=== PATIENT | female | born 1990 | race Caucasian/White ===

== ENCOUNTER 2021-02-20 05:55 | Day surgery (SDC) | payer BC ==
[2021-02-19 09:53] LABS: BASOPHILS % (AUTO) 0 % (0-1); EOSINOPHILS % (AUTO) 5 % (1-7); LYMPHOCYTES % (AUTO) 35 % (22-44); MEAN CORPUSCULAR HEMOGLOBIN 30.6 pg (27.0-34.8); MEAN CORPUSCULAR HGB CONC 33.7 g/dL (32.4-35.8); MONOCYTES % (AUTO) 7 % (2-9); NEUTROPHILS % (AUTO) 53 % (42-75); PLATELET COUNT 197 x10^3/uL (130-400); RED BLOOD COUNT 4.76 x10^6/uL (3.82-5.3); RED CELL DISTRIBUTION WIDTH 13.5 % (9.6-15.2)
[2021-02-19 09:57] LABS: MICROSCOPIC AUTO
[2021-02-19 10:05] LABS: CHLORIDE 108 mmol/L (98-107)
[2021-02-19 10:17] LABS: ALANINE AMINOTRANSFERASE 30 U/L (12-78); ALBUMIN 3.6 g/dL (3.4-5.0); ALKALINE PHOSPHATASE 68 U/L (45-117); ANION GAP 6 mmol/L (5-15); BILIRUBIN,TOTAL 0.3 mg/dL (0.2-1.0); CALCIUM 8.5 mg/dL (8.5-10.1); TOTAL PROTEIN 7.5 g/dL (6.4-8.2)
[~2021-02-20] VITALS: Ht 170.2 cm; Wt 89.6 kg
[~2021-02-20 05:55] MED LIST: ESOM40CA PO; FLUO10CA13 PO; FLUO60TA PO; LEVO100T PO
[2021-02-20] MEDS ORDERED: CHLORHEXIDINE 15 ML UDC ONE (06:09)
[2021-02-20] MEDS ORDERED: LACTATED RINGERS 1,000 ML IV SCH (06:30)
[2021-02-20] MEDS ORDERED: CHLORHEXIDINE 15 ML UDC PO ONE (06:30)
[2021-02-20 06:53] VITALS: BP 100/73
[2021-02-20] MEDS ORDERED: BUPIVACAINE/PF 0.25% ONE (07:04)
[2021-02-20] MEDS ORDERED: MANNITOL PMX 20% 500 ML ONE (07:05)
[2021-02-20] MEDS ORDERED: EPINEPHRINE 1 MG/ML, 1ML ONE (07:06)
[2021-02-20] MEDS ORDERED: PROPOFOL 10 MG/ML, 20ML ONE (07:23)
[2021-02-20] MEDS ORDERED: ROCURONIUM 10MG/ML,5ML ONE ×2 (07:23→08:49)
[2021-02-20] MEDS ORDERED: LIDOCAINE-MPF 2% ,5ML ONE (07:23)
[2021-02-20] MEDS ORDERED: PROMETHAZINE 25 MG/ML, 1ML IVPush PRN (07:30)
[2021-02-20] MEDS ORDERED: GLYCOPYRROLATE 0.2MG/1ML, 5ML ONE (08:20)
[2021-02-20] MEDS ORDERED: CEFOTETAN 2 GM ONE (08:20)
[2021-02-20] MEDS ORDERED: FENTANYL PF 100 MCG/2ML ONE ×3 (08:27→10:49)
[2021-02-20] MEDS ORDERED: ONDANSETRON 2MG/ML, 2ML ONE (09:38)
[2021-02-20] MEDS ORDERED: KETOROLAC 30 MG/1 ML ONE (09:48)
[2021-02-20] MEDS ORDERED: NEOSTIGMINE 1 MG/ML, 10ML ONE (09:49)
[2021-02-20] MEDS ORDERED: MEPERIDINE/PF 25MG/ML,1ML ONE (10:06)
[2021-02-20] MEDS ORDERED: OXYcodone 5 MG/5 ML ORAL.SOL UDC ONE (10:10)
[2021-02-20] MEDS: FENTANYL PF 100 MCG/2ML IV PRN ×4 (10:13→10:57)
[2021-02-20] MEDS ORDERED: morphine SULFATE 10 MG/ML, 1ML ONE (10:29)
[2021-02-20] MEDS ORDERED: OXYcodone 5 MG/5 ML ORAL.SOL UDC PO PRN (10:30)
[2021-02-20] MEDS ORDERED: MEPERIDINE/PF 25MG/0.5ML IVPush PRN (10:30)
[2021-02-20] MEDS: morphine SULFATE 10 MG/ML, 1ML IVPush PRN ×2 (10:31→10:42)
[2021-02-20] MEDS ORDERED: ACETAMINOPHEN 650 MG/20.3 ML UDC ONE (10:55)
[2021-02-20] MEDS: ACETAMINOPHEN 325 MG TABLET PO PRN ×2 (10:57→11:34)
== END 2021-02-20 13:58 | disposition home or self-care (01) ==
LOC: OUT 05:55
PROVIDERS: ATTEND Obstetrics & Gynecology Gynecology
DX: N80.0 Endometriosis of uterus (principal); N94.6 Dysmenorrhea, unspecified; N94.10 Unspecified dyspareunia; N83.01 Follicular cyst of right ovary; N73.6 Female pelvic peritoneal adhesions (postinfective); E03.9 Hypothyroidism, unspecified; G43.909 Migraine, unspecified, not intractable, without status migrainosus; Z79.890 Hormone replacement therapy; Z79.899 Other long term (current) drug therapy; Z88.0 Allergy status to penicillin; Z88.2 Allergy status to sulfonamides; Z88.5 Allergy status to narcotic agent; Z90.49 Acquired absence of other specified parts of digestive tract; Z90.79 Acquired absence of other genital organ(s); Z98.890 Other specified postprocedural states; Z82.49 Family history of ischemic heart disease and other diseases of the circulatory system
CPT/HCPCS: 36415; 58571; 80053; 81001; 84702; 85025; 86850; 86900; 88307; J0171; J1885; J2175; J2270; J2405; J2704; J2710; J3010; J7120; S2900

== ENCOUNTER 2021-02-26 19:56 | Emergency (ER) | payer BC ==
[~2021-02-26] VITALS: Ht 167.6 cm; Wt 88.4 kg
--- NOTE | 2021-02-26 20:01 | NUR ---
NIL X 1 WHEN CALLED FOR TRIAGE.
[2021-02-26 20:15] VITALS: BP 116/75
[2021-02-26] MEDS ORDERED: SODIUM CHLORIDE 0.9% 1,000ML IVBOLUS ONE (20:30)
[2021-02-26] MEDS ORDERED: ACETAMINOPHEN 500 MG TABLET PO ONE (20:30)
[2021-02-26 20:53] LABS: BASOPHILS % (AUTO) 0 % (0-1); EOSINOPHILS % (AUTO) 2 % (1-7); LYMPHOCYTES % (AUTO) 11 % (22-44); MEAN CORPUSCULAR HEMOGLOBIN 30.5 pg (27.0-34.8); MEAN CORPUSCULAR HGB CONC 34.1 g/dL (32.4-35.8); MEAN PLATELET VOLUME 8.3 fL (7.4-10.4); MONOCYTES % (AUTO) 8 % (2-9); NEUTROPHILS % (AUTO) 79 % (42-75); PLATELET COUNT 260 x10^3/uL (130-400); RED BLOOD COUNT 4.69 x10^6/uL (3.82-5.3); RED CELL DISTRIBUTION WIDTH 13.4 % (9.6-15.2)
[2021-02-26 21:07] LABS: ALANINE AMINOTRANSFERASE 26 U/L (12-78); ALBUMIN 3.6 g/dL (3.4-5.0); ANION GAP 8 mmol/L (5-15); CHLORIDE 103 mmol/L (98-107); CREATININE 0.83 mg/dL (0.55-1.02)
[2021-02-26] MEDS ORDERED: ACETAMINOPHEN 500 MG TABLET ONE (21:07)
[2021-02-26 21:09] LABS: ALKALINE PHOSPHATASE 79 U/L (45-117); BILIRUBIN,TOTAL 0.5 mg/dL (0.2-1.0); TOTAL PROTEIN 8.1 g/dL (6.4-8.2)
--- NOTE | 2021-02-26 21:12 | NUR ---
AMBULATORY TO BATHROOM W/ STEADY GAIT TO PROVIDE URINE SAMPLE.
--- NOTE | 2021-02-26 21:18 | NUR ---
UA SENT TO LAB AT THIS TIME
[2021-02-26] MEDS ORDERED: OMNIPAQUE 350 MG/ML, 100ML BOTTLE ONE (21:41)
[2021-02-26 22:35] LABS: MICROSCOPIC NOT IND
--- NOTE | 2021-02-26 23:23 | NUR ---
Patient/Caregiver given discharge instructions and they have confirmed that they understand the instructions. Patient ambulatory with steady gait. NAD, all questions answered appropriately, denies additional needs at this time. No personal belongings left in room after discharge.
--- NOTE | 2021-02-26 23:23 | NUR ---
COVID SWAB WALKEDTO LAB PRIOR TO DISCHARGE
== END 2021-02-26 23:24 | disposition home or self-care (01) ==
LOC: ED 21:58
DX: R10.30 Lower abdominal pain, unspecified (principal); Z20.822 Contact with and (suspected) exposure to COVID-19; R50.9 Fever, unspecified; Z90.710 Acquired absence of both cervix and uterus; Z90.722 Acquired absence of ovaries, bilateral
CPT/HCPCS: 36415; 74177; 80053; 81003; 83605; 84145; 85025; 87040; 96360; 99285; J7030; Q9967; U0003; U0005

== ENCOUNTER 2021-02-27 11:03 | Inpatient (IN) | payer BC ==
[~2021-02-27] VITALS: Ht 152.4 cm; Wt 93.9 kg
--- NOTE | 2021-02-27 11:46 | NUR ---
URINE AND STOOL SPECIMEN COLLECTED/WALKED TO LAB.
[2021-02-27 11:51] LABS: MEAN CORPUSCULAR HEMOGLOBIN 30.8 pg (27.0-34.8); MEAN CORPUSCULAR HGB CONC 34.1 g/dL (32.4-35.8); MEAN PLATELET VOLUME 8.5 fL (7.4-10.4); PLATELET COUNT 236 x10^3/uL (130-400); RED BLOOD COUNT 4.65 x10^6/uL (3.82-5.3); RED CELL DISTRIBUTION WIDTH 13.4 % (9.6-15.2)
[2021-02-27 12:03] LABS: ALBUMIN 3.8 g/dL (3.4-5.0); CALCIUM 9.5 mg/dL (8.5-10.1); CHLORIDE 106 mmol/L (98-107)
[2021-02-27 12:08] LABS: ALANINE AMINOTRANSFERASE 24 U/L (12-78); ALKALINE PHOSPHATASE 84 U/L (45-117); ANION GAP 10 mmol/L (5-15); BILIRUBIN,TOTAL 0.6 mg/dL (0.2-1.0); CREATININE 0.93 mg/dL (0.55-1.02); TOTAL PROTEIN 8.5 g/dL (6.4-8.2)
[2021-02-27 12:12] LABS: MICROSCOPIC NOT IND
--- NOTE | 2021-02-27 12:58 | NUR ---
MATERIAL CONTROL CLERK: PT TO ROOM FROM LOBBY
[2021-02-27 13:03] LABS: <PLATELET ESTIMATE> ADEQUATE; <PLT MORPHOLOGY> NORMAL PLT MORPH; <RBC MORPHOLOGY> NORMAL; BAND#(MANUAL) 4.27 x10^3/uL; BANDS%(MANUAL) 18 % (0-7); EOS#(MANUAL) 0.24 x10^3/uL (0.0-0.4); EOS% (MANUAL) 1 % (1-7); LYMPH#(MANUAL) 0.95 x10^3/uL (1-3.4); LYMPHS% (MANUAL) 4 % (22-44); MONOS% (MANUAL) 8 % (2-9); SEG#(MANUAL) 16.35 x10^3/uL (1.8-6.8); SEGS% (MANUAL) 69 % (42-75)
[2021-02-27] MEDS ORDERED: ONDANSETRON 2MG/ML, 2ML IVPush ONE (13:30)
[2021-02-27] MEDS ORDERED: SODIUM CHLORIDE 0.9% 1,000ML IVBOLUS ONE (13:30)
[2021-02-27] MEDS ORDERED: PIPERACILLIN/TAZO 3.375 GM in DEXTROSE 5% 50 ML IVPB ONE (13:30)
[2021-02-27] MEDS ORDERED: SODIUM CHLORIDE FLUSH 10ML SYR IVF ONE (13:30)
[2021-02-27] MEDS ORDERED: HYDROmorphone 2 MG/ML, 1ML IV ONE (13:30)
--- NOTE | 2021-02-27 13:50 | NUR ---
PT LAST ORAL INTAKE WAS HALF BANANA AT 0530.
--- NOTE | 2021-02-27 13:53 | NUR ---
PT STATES PENICIILIN ALLERGY WAS TOLD TO HER BY HER MOTHER A KID. PT HAS HAD PENICILLAN IN THE LAST 2 YEARS. NO REACTION TO TAKING IT.
[2021-02-27] MEDS ORDERED: ONDANSETRON 2MG/ML, 2ML ONE (14:00)
[2021-02-27] MEDS ORDERED: HYDROmorphone 2 MG/ML, 1ML ONE (14:00)
[2021-02-27 14:26] LABS: CLOSTRIDIUM DIFFICILE ANTIGEN NEGATIVE; CLOSTRIDIUM DIFFICILE TOXIN NEGATIVE (Negative)
[2021-02-27] MEDS ORDERED: OXYcodone 5 MG/5 ML ORAL.SOL UDC PO PRN (16:30)
[2021-02-27] MEDS ORDERED: SODIUM CHLORIDE 0.9% 1,000ML IV ONE (16:30)
[2021-02-27] MEDS ORDERED: PHARMACY MAY ADJ FOR RENAL FX MC SCH (16:30)
[2021-02-27] MEDS: SODIUM CHLORIDE 0.45% 1,000 ML IV SCH ×2 (16:30→21:51)
[2021-02-27] MEDS: SODIUM CHLORIDE 0.9% 1,000 ML IV SCH ×2 (16:30→20:30)
[2021-02-27 19:19] VITALS: BP 103/59
[2021-02-27] MEDS: HYDROmorphone 2 MG/ML, 1ML IV PRN ×2 (19:23→22:49)
[2021-02-27 19:29] VITALS: BP 92/58
[2021-02-27] MEDS: KETOROLAC 30 MG/1 ML IVPush PRN (20:03)
[2021-02-27] MEDS ORDERED: ACETAMINOPHEN 500 MG TABLET PO PRN (20:30)
[2021-02-27] MEDS: FLUOXETINE HCL 20 MG CAPSULE PO SCH (21:47)
[2021-02-27] MEDS: PIPERACILLIN/TAZO 4.5 GM in DEXTROSE 5% 100 ML IVPB SCH (21:48)
[2021-02-27] MEDS: ONDANSETRON 2MG/ML, 2ML IV PRN (22:00)
[2021-02-28] MEDS: SODIUM CHLORIDE 0.9% 1,000 ML IV SCH ×6 (00:30→20:16)
[2021-02-28 01:35] VITALS: BP 94/62
[2021-02-28] MEDS: KETOROLAC 30 MG/1 ML IVPush PRN ×3 (02:11→16:51)
[2021-02-28] MEDS: SODIUM CHLORIDE 0.45% 1,000 ML IV SCH ×3 (02:12→23:30)
[2021-02-28] MEDS: PIPERACILLIN/TAZO 4.5 GM in DEXTROSE 5% 100 ML IVPB SCH ×4 (04:17→21:16)
[2021-02-28] MEDS: LEVOTHYROXINE 100 MCG TABLET PO SCH (06:40)
[2021-02-28 08:45] VITALS: BP 98/66
[2021-02-28] MEDS: SENNA/DOCUSATE TABLET PO SCH (09:00)
[2021-02-28] MEDS: ONDANSETRON 2MG/ML, 2ML IV PRN ×2 (09:29→16:51)
[2021-02-28 11:48] LABS: BASOPHILS % (AUTO) 0 % (0-1); EOSINOPHILS % (AUTO) 4 % (1-7); LYMPHOCYTES % (AUTO) 15 % (22-44); MEAN CORPUSCULAR HEMOGLOBIN 30.8 pg (27.0-34.8); MEAN CORPUSCULAR HGB CONC 34.2 g/dL (32.4-35.8); MEAN PLATELET VOLUME 8.1 fL (7.4-10.4); MONOCYTES % (AUTO) 11 % (2-9); NEUTROPHILS % (AUTO) 70 % (42-75); PLATELET COUNT 152 x10^3/uL (130-400); RED BLOOD COUNT 3.99 x10^6/uL (3.82-5.3); RED CELL DISTRIBUTION WIDTH 13.3 % (9.6-15.2)
[2021-02-28 11:52] VITALS: BP 99/64
[2021-02-28 14:00] VITALS: BP_SYST 83; BP_SYST 99; BP_DIAS 53; BP_DIAS 64
[2021-02-28] MEDS ORDERED: MORPHINE SULFATE 4 MG/ML, 1ML IVPush PRN (19:00)
[2021-02-28 20:01] VITALS: BP 93/62
[2021-02-28] MEDS: DIPHENHYDRAMINE 50 MG/ML, 1ML IV PRN (21:16)
[2021-02-28] MEDS: FLUOXETINE HCL 20 MG CAPSULE PO SCH (21:16)
[2021-03-01] MEDS: SODIUM CHLORIDE 0.9% 1,000 ML IV SCH ×5 (00:30→16:20)
[2021-03-01 00:49] VITALS: BP 77/50
[2021-03-01 03:30] VITALS: BP 87/55
[2021-03-01] MEDS: PIPERACILLIN/TAZO 4.5 GM in DEXTROSE 5% 100 ML IVPB SCH ×3 (03:30→15:32)
[2021-03-01 04:57] VITALS: BP 91/58
[2021-03-01 05:34] LABS: BASOPHILS % (AUTO) 1 % (0-1); EOSINOPHILS % (AUTO) 7 % (1-7); LYMPHOCYTES % (AUTO) 27 % (22-44); MEAN CORPUSCULAR HGB CONC 34.4 g/dL (32.4-35.8); MEAN PLATELET VOLUME 8.4 fL (7.4-10.4); MONOCYTES % (AUTO) 10 % (2-9); NEUTROPHILS % (AUTO) 56 % (42-75); PLATELET COUNT 181 x10^3/uL (130-400); RED BLOOD COUNT 3.89 x10^6/uL (3.82-5.3); RED CELL DISTRIBUTION WIDTH 13.5 % (9.6-15.2)
[2021-03-01] MEDS: LEVOTHYROXINE 100 MCG TABLET PO SCH (06:33)
[2021-03-01 07:16] VITALS: BP 94/60
[2021-03-01] MEDS: SENNA/DOCUSATE TABLET PO SCH (08:30)
[2021-03-01] MEDS: SODIUM CHLORIDE 0.45% 1,000 ML IV SCH (09:31)
[2021-03-01] MEDS: KETOROLAC 30 MG/1 ML IVPush PRN (09:49)
[2021-03-01 12:19] VITALS: BP 93/60
[2021-03-01] MEDS: DIPHENHYDRAMINE 50 MG/ML, 1ML IV PRN (15:21)
[2021-03-01 17:45] VITALS: BP 96/62
== END 2021-03-01 18:30 | disposition home or self-care (01) | DRG 864 ==
LOC: ED 16:10 → 4NE 16:26
PROVIDERS: ADMIT Obstetrics & Gynecology Gynecology; ATTEND Obstetrics & Gynecology Gynecology
DX: R50.82 Postprocedural fever (principal); D72.825 Bandemia; Z20.822 Contact with and (suspected) exposure to COVID-19; F32.9 Major depressive disorder, single episode, unspecified; F41.9 Anxiety disorder, unspecified; G43.909 Migraine, unspecified, not intractable, without status migrainosus; R53.83 Other fatigue; Z80.3 Family history of malignant neoplasm of breast; Z80.41 Family history of malignant neoplasm of ovary; Z82.3 Family history of stroke; Z82.49 Family history of ischemic heart disease and other diseases of the circulatory system; Z83.3 Family history of diabetes mellitus; Z90.710 Acquired absence of both cervix and uterus; Z90.721 Acquired absence of ovaries, unilateral; Z88.2 Allergy status to sulfonamides; Z88.0 Allergy status to penicillin; Z91.013 Allergy to seafood; Z88.5 Allergy status to narcotic agent; Z91.040 Latex allergy status
CPT/HCPCS: 36415; 80053; 81003; 85025; 87046; 87324; 87338; 87635; 89055; 96365; 96375; 99285; G0378; J1170; J1885; J2405; J2543; J1200; J2270; J7030